=== PATIENT | male | born 2000 | race Caucasian/White ===

== ENCOUNTER 2024-07-26 02:07 | Emergency (ER) | payer MEDICAID ==
[~2024-07-26] VITALS: Ht 157.5 cm; Wt 66.0 kg
[2024-07-26 02:14] VITALS: O2SAT 99
[2024-07-26] MEDS: TRAMADOL 50MG TABLET PO ONE (02:30)
[2024-07-26] MEDS: ACETAMINOPHEN 650MG/20.3ML UDC PO ONE (02:30)
[2024-07-26 03:18] LABS: CHLORIDE 111 mEq/L (98-107); POTASSIUM 3.5 mEq/L (3.5-5.1); SODIUM 144 mEq/L (136-145)
[2024-07-26 03:19] LABS: CALCIUM 9.3 mg/dL (8.7-10.4); CARBON DIOXIDE 24 mEq/L (21-32)
[2024-07-26 03:24] LABS: CREATININE 0.8 mg/dL (0.6-1.3); GLUCOSE 98 mg/dL (70-105); UREA NITROGEN BLOOD 9 mg/dL (9-23)
[2024-07-26 04:47] LABS: BASOPHILS % 0.6 % (0.0-2.0); EOSINOPHILS % 1.7 % (0.0-5.0); HEMATOCRIT. 42.5 % (42.0-52.0); HEMOGLOBIN. 14.8 g/dL (14.0-18.0); LYMPHOCYTES % 22.1 % (20.0-50.0); MEAN CORPUSCULAR HEMOGLOBIN 33.4 pg (28.0-32.0); MEAN CORPUSCULAR HGB CONC 34.8 g/dL (31.0-37.0); MEAN CORPUSCULAR VOLUME 95.9 fL (80.0-94.0); MEAN PLATELET VOLUME 8.2 fl (7.4-10.4); MONOCYTES % 9.4 % (2.0-8.0); NEUTROPHILS % 66.2 % (40.0-76.0); PLATELET 353 x1000/uL (130-400); RED BLOOD CELL COUNT 4.43 mill/uL (4.7-6.1); RED CELL DISTRIBUTION WIDTH 13.9 % (11.6-14.6); WHITE BLOOD COUNT 11.3 x1000/uL (4.5-11.0)
[2024-07-26 06:25] VITALS: BP 102/62; PULSE 89; RESP 18; TEMP 36.89184; O2SAT 98
[2024-07-26] MEDS ORDERED: PENI500T MT (07:04)
== END 2024-07-26 07:31 | disposition home or self-care (01) ==
LOC: ER 02:07
DX: S00.83XA Contusion of other part of head, initial encounter (principal); Y92.410 Unspecified street and highway as the place of occurrence of the external cause; Y93.89 Activity, other specified; Y92.89 Other specified places as the place of occurrence of the external cause; Y99.8 Other external cause status
CPT/HCPCS: 36415; 70486; 80048; 80320; 85025; 99284; G0480